=== PATIENT | female | born 1985 | race Caucasian/White ===

== ENCOUNTER → 2016-08-14 | Outpatient (CLI) | payer BC ==
--- NOTE | 2016-08-14 16:17 | REP ---
Clinical: Anatomical evaluation. Comparison: None . Findings: Examination demonstrates a single live intrauterine in breech presentation. motion is identified by technologist. Placenta is noted anteriorly and grade zero without evidence for placenta previa or abruption. Amniotic fluid volume is normal. Cervix measures 4.6 cm in length and appears closed. No evidence for nuchal cord. Gestational age by current measurements 19 weeks 5 days with DEJAN 01/03/2017. FHR equals 153 beats per minute. BPD 4.5 cm 19 weeks 5 days HC 17.0 cm 19 weeks 4 days AC 15.0 cm 20 weeks 2 days FL 3.3 cm 20 weeks 2 days HL 3.1 cm 20 weeks 1 day HC/AC ratio 1.14 Estimated weight 337 grams ( 61st percentile). Anatomical assessment demonstrates normal structures including cranium, choroid plexus, cavum, cerebellum/posterior fossa, facial features, lungs, four-chamber heart/ventricular outflow tracts, diaphragm, stomach, cord insertion/three-vessel cord, kidneys/bladder, spine, and upper extremities. Impression: Single live intrauterine in breech presentation. Limited evaluation of the lower extremities. Anatomical assessment is otherwise complete and normal. Signed by Rommel Everett MD 08/14/2016 04:08 P
== END ==
LOC: M SMT 14:45
PROVIDERS: ATTEND Advanced Practice Midwife
DX: Z36 Encounter for antenatal screening of mother (principal); Z3A.20 20 weeks gestation of pregnancy

== ENCOUNTER → 2016-09-04 | Outpatient (CLI) | payer BC ==
--- NOTE | 2016-09-04 17:23 | REP ---
Obstetric sonography: History: Supervision of followup anatomy and lower extremities. Comparison study: 08/14/2016. Findings: Scanning through the gravid uterus demonstrates a viable single intrauterine gestation in a cephalic lie. motion is observed and heart rate is recorded at 144 beats per minute. A grade zero anterior placenta is seen without evidence of previa or abruption. Amniotic fluid is subjectively normal. Closed cervical length is 4.2 cm. No extrauterine abnormality is observed. There has been appropriate interval growth. No anomaly is seen. The upper and lower extremities are seen today and felt to be unremarkable. The following additional anatomic structures are identified again and remain unremarkable: cranium, choroid plexus, cavum, cerebellum posterior fossa, lungs, four-chamber heart with left ventricular outflow tract view, diaphragm, left-sided stomach, three-vessel cord, kidneys and bladder, spine. Biometry chart: BPD 5.5 cm = 22-week 6 days Head circumference 20.4 cm = 22 weeks 4 days Abdominal circumference 18.2 cm = 23 weeks 0 days Femur length 4.1 cm = 23 weeks 3 days Humeral length 3.7 cm = 23 weeks 0 days Cerebellar diameter 2.6 cm = 23 weeks 3 days HC/AC ratio normal 1.12, cephalic index normal 0.75, estimated weight 564 grams 1 pound 3 ounces 56 percentile for 22 weeks 5 days. Impression: Viable single intrauterine gestation at 22 weeks 5 days by today's composite sonographic criteria. Expected gestational age estimate based on prior sonography is also 22 weeks 5 days. DEJAN by prior sonography 01/03/2017. lower extremities are visualized and felt to be unremarkable. anatomic survey is felt to be complete. Signed by William Tobias MD 09/05/2016 12:23 P
== END ==
LOC: M SMT 14:35
PROVIDERS: ATTEND Advanced Practice Midwife

== ENCOUNTER → 2016-09-13 | Outpatient (CLI) | payer BC ==
[2016-09-13 16:42] LABS: MEAN CORPUSCULAR HEMOGLOBIN 31.3 pg (27.0-33.0); RED CELL DISTRIBUTION WIDTH 13.4 % (11.5-14.5); WHITE BLOOD COUNT 9.8 K/mm3 (4.0-10.0)
== END ==
LOC: M SMT 10:48
PROVIDERS: ATTEND Obstetrics & Gynecology
DX: Z34.82 Encounter for supervision of other normal pregnancy, second trimester (principal)

== ENCOUNTER → 2016-09-20 | Outpatient (CLI) | payer BC | LOC: M LAB 08:12 | PROVIDERS: ATTEND Obstetrics & Gynecology | DX: Z34.82 Encounter for supervision of other normal pregnancy, second trimester (principal) ==

== ENCOUNTER → 2016-12-07 | Outpatient (REF) | payer BC ==
[~2016-12-07] MED LIST: PRENTAB9 PO
== END ==
LOC: M LAB REF 16:53
PROVIDERS: ATTEND Obstetrics & Gynecology
DX: Z34.83 Encounter for supervision of other normal pregnancy, third trimester (principal)

== ENCOUNTER 2016-12-14 17:03 | Outpatient (CLI) | payer BC ==
[~2016-12-14] VITALS: Ht 162.6 cm; Wt 78.0 kg
[2016-12-14] MEDS ORDERED: PRENTAB9 PO (17:15)
[2016-12-14 18:21] VITALS: BP 130/72
[2016-12-14 19:11] VITALS: BP 123/66
[2016-12-14 20:11] VITALS: BP 122/71
[2016-12-14 21:41] VITALS: BP 122/57
== END 2016-12-14 22:20 | disposition home or self-care (01) ==
LOC: M LDO 17:03
PROVIDERS: ATTEND Specialist
DX: O47.1 False labor at or after 37 completed weeks of gestation (principal); Z3A.37 37 weeks gestation of pregnancy; O26.853 Spotting complicating pregnancy, third trimester; Z88.8 Allergy status to other drugs, medicaments and biological substances

== ENCOUNTER 2016-12-16 11:50 | Outpatient (CLI) | payer BC ==
[~2016-12-16] VITALS: Ht 162.6 cm; Wt 76.0 kg
[2016-12-16 12:09] VITALS: BP 126/75
[2016-12-16 13:04] VITALS: BP 121/76
== END 2016-12-16 15:25 | disposition home or self-care (01) ==
LOC: M LDO 11:50
PROVIDERS: ATTEND Specialist
DX: O47.1 False labor at or after 37 completed weeks of gestation (principal); Z3A.38 38 weeks gestation of pregnancy; O26.853 Spotting complicating pregnancy, third trimester; Z88.8 Allergy status to other drugs, medicaments and biological substances

== ENCOUNTER 2016-12-20 11:17 | Inpatient (IN) | payer BC ==
[2016-12-20] VITALS (20 sets, daily range): BP systolic 110–140; BP diastolic 57–80
[~2016-12-20] VITALS: Ht 162.6 cm; Wt 75.0 kg
[2016-12-20 12:11] LABS: MEAN CORPUSCULAR HEMOGLOBIN 32.2 pg (27.0-33.0); MEAN CORPUSCULAR HGB CONC 33.7 g/dl (32.0-36.5); MEAN CORPUSCULAR VOLUME 95.5 fl (80.0-96.0); RED CELL DISTRIBUTION WIDTH 13.4 % (11.5-14.5); WHITE BLOOD COUNT 8.4 K/mm3 (4.0-10.0)
[2016-12-20] MEDS ORDERED: OXYTOCIN 30 UNITS IN 0.9% NaCl 500ML IV BAG (J2590) As Ordered ONE (12:24)
[2016-12-20] MEDS ORDERED: FENTANYL 2MCG/ML ROPIVACAINE 0.2% IN 0.9% NACL 200ML IVBAG As Ordered ONE (14:16)
--- NOTE | 2016-12-20 15:04 | HPE ---
DATE OF ADMISSION: 12/20/2016 A 31-year-old (G) 2, para (P) 1 female at 38-5/7 weeks gestation by 11-week ultrasound, estimated date of confinement (EDC) 12/29/2016, presents with regular contractions every 2-3 minutes for the last several hours. She has a small amount of vaginal bleeding and there is good movement. COURSE: The patient initiated care at 11 weeks gestation on 06/13/2016. Her blood pressure was 122/69, weighed 144 pounds. Her course was unremarkable. PAST MEDICAL HISTORY: Benign brain tumor. PAST SURGICAL HISTORY: Excision of benign brain tumor in 1992. ALLERGIES: No known drug allergies. SOCIAL HISTORY: The patient is and her is in the . She denies cigarettes, alcohol or drug use during . FAMILY HISTORY: Noncontributory. PHYSICAL EXAMINATION: Blood pressure 119/70, weight 176 pounds. She appears uncomfortable. HEAD AND NECK EXAMINATION: Normal. LUNGS: Clear. HEART: Regular rate and rhythm. ABDOMEN: Nontender, gravid. heart tones category 1. STERILE VAGINAL EXAMINATION: 3 cm, 100% effaced, -2 station, vertex, intact. EXTREMITIES: Nontender. LABORATORY DATA: Blood type is B positive, Rubella immune, RPR nonreactive, hepatitis B and C negative. HIV negative. Diabetes screen 196, normal three-hour glucose tolerance test. GBS negative on 12/07/2016. ASSESSMENT: A 31-year-old (G) 2, para (P) 1 female 38-5/7 weeks gestation by 11-week ultrasound presenting in labor. The patient is admitted on 12/20/2016.
[2016-12-20] MEDS ORDERED: diphenhydrAMINE INJ 50MG/ML VIAL (J1200) IV PRN (16:00)
[2016-12-20] MEDS ORDERED: FENTANYL/ROPIVACAINE/NACL BAG 200 ML EPIDURAL SCH (16:00)
[2016-12-20] MEDS ORDERED: EPIDURAL/PCA KEYS XX PRN (16:00)
[2016-12-20] MEDS ORDERED: ONDANSETRON 4MG/2ML VIAL (J2405) IV PRN ×2 (16:00→17:15)
[2016-12-20] MEDS ORDERED: NALOXONE INJ 0.4 MG/1 ML VIAL (J2310) IV PRN (16:00)
[2016-12-20] MEDS ORDERED: EPIDURAL COMMENT XX SCH (16:00)
[2016-12-20] MEDS ORDERED: ePHEDrine SULFATE 25 MG/5 ML(5MG/ML) SYRINGE IV PRN (16:00)
[2016-12-20] MEDS ORDERED: LACTATED RINGER'S 1000 ML IV PRN (16:00)
[2016-12-20] MEDS ORDERED: REFRIGERATOR IV KEYS XX PRN (16:00)
[2016-12-20] MEDS ORDERED: MEASLES,MUMPS,RUBELLA VACCINE INJ (MMR-II) (90707) SC SCH (17:15)
[2016-12-20] MEDS ORDERED: METHYLERGONOVINE MALEATE 0.2 MG TAB PO PRN (17:15)
[2016-12-20] MEDS ORDERED: RHOGAM 300 MCG (1500 IU) INJ (J2790) IM SCH (17:15)
[2016-12-20] MEDS ORDERED: DIBUCAINE 1% OINTMENT 30GM TOP PRN (17:15)
[2016-12-20] MEDS ORDERED: DOCUSATE SODIUM 100 MG CAP PO PRN (17:15)
[2016-12-20] MEDS ORDERED: OXYTOCIN DRIP 30 UNITS in APPROPRIATE DILUENT 1 EA IV ONE (17:15)
[2016-12-20] MEDS ORDERED: IBUPROFEN 800 MG TAB PO PRN (17:15)
[2016-12-20] MEDS ORDERED: ACETAMINOPHEN 500 MG TAB PO PRN (17:15)
[2016-12-21 05:45] VITALS: BP 135/67
--- NOTE | 2016-12-21 08:14 | DN ---
DATE OF DELIVERY: 12/20/2016 PREPROCEDURE DIAGNOSIS: 38-5/7 weeks gestation in labor. POSTPROCEDURE DIAGNOSIS: Delivered. PROCEDURE: Spontaneous vaginal delivery. SURGEON: Dr. Nehemias Landeros. QUALIFICATIONS EXAMINER: ANESTHESIA: Epidural. ESTIMATED BLOOD LOSS: 300 mL. FINDINGS: 6 pound 15 ounce female , 3140 grams, 9 and 9. DELIVERY SUMMARY: Through a short second stage, the patient was +3 station with deep variable decelerations noted. A vacuum was applied at +3 station. Delivery was accomplished in a single control traction. Loose nuchal cord times one was reduced manually. The shoulders delivered with ease. The infant cried spontaneously and was handed to the mother. The cord was doubly clamped and cut. The placenta was removed manually after being retained for greater than 15 minutes. Patient received IV Pitocin immediately after delivery of the placenta. First degree vaginal laceration was repaired with two interrupted sutures of #3-0 Chromic. Sponge and needle counts were correct.
[2016-12-21] MEDS ORDERED: PRENATAL VITAMIN TAB PO SCH (09:00)
[2016-12-21 18:00] VITALS: BP 136/62
[2016-12-21 20:38] VITALS: BP 136/62
[2016-12-22 05:31] VITALS: BP 134/61
[2016-12-22] MEDS ORDERED: PRENATAL VITAMINS CHEWABLE TABLET PO SCH (09:00)
[2016-12-22] MEDS ORDERED: TYLE500T78 PO (09:52)
[2016-12-22] MEDS ORDERED: IBUP-1114 PO (09:54)
[2016-12-22 12:00] VITALS: BP 128/63
== END 2016-12-22 12:55 | disposition home or self-care (01) | DRG 541 ==
LOC: M LDI 11:17 → M OBS 20:11
PROVIDERS: ADMIT Specialist; ATTEND Specialist
PROC: 10D07Z6 Extraction of Products of Conception, Vacuum, Via Natural or Artificial Opening (ICD-10-PCS; principal; 2016-12-20)
PROC: 10D17ZZ Extraction of Products of Conception, Retained, Via Natural or Artificial Opening (ICD-10-PCS; 2016-12-20)
PROC: 0HQ9XZZ Repair Perineum Skin, External Approach (ICD-10-PCS; 2016-12-20)
DX: O76 Abnormality in fetal heart rate and rhythm complicating labor and delivery (principal); O70.0 First degree perineal laceration during delivery; Z37.0 Single live birth; Z3A.38 38 weeks gestation of pregnancy; O73.0 Retained placenta without hemorrhage

== ENCOUNTER 2017-02-01 06:16 | Day surgery (SDC) | payer BC ==
[~2017-02-01] VITALS: Ht 162.6 cm; Wt 72.6 kg
[~2017-02-01 06:16] MED LIST changes: +IBUP-1114 PO; +TOPA100T12 PO; +TYLE500T78 PO
[2017-02-01] MEDS ORDERED: LR 1,000 ML IV SCH ×3 (06:30→09:30)
[2017-02-01 06:47] LABS: MEAN CORPUSCULAR HEMOGLOBIN 31.6 pg (27.0-33.0); MEAN CORPUSCULAR VOLUME 92.9 fl (80.0-96.0); RED CELL DISTRIBUTION WIDTH 13.2 % (11.5-14.5); WHITE BLOOD COUNT 4.7 K/mm3 (4.0-10.0)
[2017-02-01 06:59] LABS: CONTROL LINE HCG INT CTR LINE PRESENT
[2017-02-01] MEDS ORDERED: BUPIVACAINE HCL 0.25% 10 ML VIAL As Ordered ONE (07:38)
[2017-02-01] MEDS ORDERED: HYDROmorphone HCL 2 MG/ML 1ML VIAL (J1170) As Ordered ONE (08:11)
[2017-02-01] MEDS ORDERED: VECURONIUM BROMIDE 10 MG VIAL As Ordered ONE (08:11)
[2017-02-01] MEDS ORDERED: LIDOCAINE 2% INJ 100 MG/5 ML SDV (FOR ANES.) As Ordered ONE (08:11)
[2017-02-01] MEDS ORDERED: fentaNYL 250 MCG/5 ML INJECTION (J3010) As Ordered ONE (08:11)
[2017-02-01] MEDS ORDERED: MIDAZOLAM INJ 2 MG/2 ML VIAL (J2250) As Ordered ONE (08:11)
[2017-02-01] MEDS ORDERED: ONDANSETRON 4MG/2ML VIAL (J2405) As Ordered ONE ×2 (08:11→12:12)
[2017-02-01] MEDS ORDERED: PROPOFOL 200 MG/20 ML VIAL As Ordered ONE ×2 (08:11→08:43)
[2017-02-01] MEDS ORDERED: KETOROLAC 60 MG/2 ML VIAL (J1885) As Ordered ONE (08:11)
[2017-02-01] MEDS ORDERED: dexameTHASONE 4 MG/ML 1ML VIAL (J1100) As Ordered ONE (08:11)
[2017-02-01] MEDS ORDERED: NEOSTIGMINE 1MG/ML 5 ML SYRINGE (J2710) As Ordered ONE (08:19)
[2017-02-01] MEDS ORDERED: GLYCOPYRROLATE INJ 0.2 MG/ML 2 ML VIAL As Ordered ONE (08:19)
[2017-02-01] MEDS ORDERED: SILVER NITRATE APPLICATOR As Ordered ONE ×2 (08:21→08:50)
[2017-02-01] MEDS ORDERED: OXYC1TAB23 PO (09:01)
[2017-02-01] MEDS ORDERED: IBUP-1022 PO (09:03)
[2017-02-01] MEDS ORDERED: ONDANSETRON 4MG/2ML VIAL (J2405) IV PRN (09:30)
[2017-02-01] MEDS ORDERED: fentaNYL 100 MCG/2 ML INJECTION (J3010) IV PRN (09:30)
[2017-02-01] MEDS ORDERED: PERCOCET 5MG/325MG TAB PO PRN (09:30)
[2017-02-01] MEDS ORDERED: METOCLOPRAMIDE INJ 10MG/2ML VIAL (J2765) As Ordered ONE (09:50)
[2017-02-01] MEDS ORDERED: METOCLOPRAMIDE INJ 10MG/2ML VIAL (J2765) IV PRN (10:00)
[2017-02-01] MEDS ORDERED: TOPIRAMATE (TopAMAX) 100 MG TAB PO ONE (13:00)
[2017-02-01 15:25] VITALS: BP 120/74
--- NOTE | 2017-02-03 07:27 | RO ---
DATE OF PROCEDURE: 02/01/2017 PREOPERATIVE DIAGNOSIS: Satisfied parity. POSTOPERATIVE DIAGNOSIS: Satisfied parity. PROCEDURE PERFORMED: Laparoscopic bilateral salpingectomy. SURGEON: Dr. Ariel Westfall TRIP MOTOR OPERATOR: None. ANESTHESIA: General endotracheal. SPECIMENS TO PATHOLOGY: Bilateral fallopian tubes. ESTIMATED BLOOD LOSS: 10 mL. FLUIDS REPLACED: 1300 mL lactated Ringer's. DRAINS: Stein catheter with urine output of 400 mL. COMPLICATIONS: None. PREOPERATIVE ANTIBIOTICS: None indicated. INTRAOPERATIVE FINDINGS: Normal uterus and bilateral adnexa. No intraperitoneal adhesive disease. No intra-abdominal masses. INDICATIONS: The patient is a 31-year-old with 100% satisfied parity requesting permanent tubal sterilization. After reviewing all options of control to include long-acting reversible contraception, she has elected to proceed with a laparoscopic bilateral salpingectomy. PROCEDURE: The patient was counseled and consented on risks, benefits, indications and alternatives to the procedure. Informed consent was obtained. She was taken to the operating room with an IV running and placed on the operating table in dorsal supine position. General anesthesia was administered and the airway secured without any difficulty. The patient was placed in low lithotomy position. She was prepared and draped in the normal sterile fashion. A time- out was performed per protocol. A Stein catheter was placed under sterile conditions. A sterile speculum was placed into the vagina with good visualization of the cervix. A single-tooth tenaculum was used to grasp the anterior lip of the cervix and downward traction was applied. The cervix then sequentially dilated with Gordon dilators up to #16. The [place] uterine manipulator was then placed in typical fashion. The single-tooth tenaculum was removed. The sterile speculum was removed. A glove switch was performed. Attention was turned to the abdomen. Five mL of 0.25% Marcaine were injected into the umbilicus. An 8 mm umbilical incision was made with the 11 blade and through this umbilical incision a Veress needle was placed into the intraperitoneal cavity. The intraperitoneal placement was confirmed with ease of flow of normal saline, negative return on aspiration and a positive drop test. The opening pressure was 4 mmHg. The abdomen was insufflated with 2 liters of gas. The Veress needle was removed. The size 5 mm [place] laparoscopic trocar was placed through this incision into the intraperitoneal cavity without any difficulty. No incidental bleeding or injury was noted. The patient was placed in steep Trendelenburg. Two additional laparoscopic port sites were placed on the left lower abdomen, each through 5 mm skin incisions and 5 mm [place] laparoscopic trocars were placed under direct laparoscopic visualization. The umbilical cannula was replaced with an 8 mm [place] cannula without any difficulty. The anatomy was identified and the right fallopian tube was grasped at the fimbriated end and elevated using the LigaSure device. The underlying broad ligament mesosalpinx was sequentially clamped, coagulated and transected until the level of the uterus was reached. At the level of the uterus, the right fallopian tube was clamped, coagulated and transected, thus amputating the right fallopian tube. The right fallopian tube was brought through the 5 mm cannula. Attention was then turned to the left fallopian tube. The left fallopian tube was grasped at the fimbriated end and elevated. The underlying mesosalpinx/broad ligament was sequentially clamped, coagulated and transected with the LigaSure device until the level of the uterus was reached. Then the left fallopian tube was clamped, coagulated and transected with the LigaSure device. The left fallopian tube was amputated and removed through the 8 mm port site. The surgical sites were completely hemostatic. Excellent hemostasis was noted throughout the entire abdomen and pelvis. The gas was released from the abdomen. The cannulas were removed. The skin incisions were closed with #4-0 Monocryl in subcuticular fashion and reinforced with Dermabond. Sponge, lap, needle and instrument counts were correct. Attention was turned back to the vagina. The Stein catheter was removed. The sterile speculum was placed with good visualization of the cervix. The Hul[place] uterine manipulator was removed. The [place] site had a small incidental bleeding laceration on the cervix and this was sutured with a single interrupted stitch using #3-0 Vicryl. Excellent hemostasis was noted. All the instruments were then removed from the vagina. Sponge, lap, needle and instrument counts were again correct. The patient tolerated the entire procedure very well. She was transferred to the postanesthesia care unit (PACU) in good and stable condition. VICKIE
== END 2017-02-01 15:26 | disposition home or self-care (01) ==
LOC: M SDC 06:16
PROVIDERS: ATTEND Obstetrics & Gynecology
DX: Z30.2 Encounter for sterilization (principal); M54.2 Cervicalgia; F41.9 Anxiety disorder, unspecified; F32.9 Major depressive disorder, single episode, unspecified; G43.909 Migraine, unspecified, not intractable, without status migrainosus; Z86.011 Personal history of benign neoplasm of the brain; Z79.899 Other long term (current) drug therapy; Z88.8 Allergy status to other drugs, medicaments and biological substances
CPT/HCPCS: 36415; 58661; 84703; 85027; 86850; 86900; 86901; 88302; J1100; J1170; J1885; J2250; J2405; J2710; J2765; J3010

== ENCOUNTER → 2017-06-19 | Outpatient (CLI) | payer BC ==
[~2017-06-19] MED LIST changes: +IBUP-1022 PO; +OXYC1TAB23 PO
[2017-06-19 18:12] LABS: FREE T4 1.04 NG/DL (0.76-1.46)
== END ==
LOC: M SMT 14:39
PROVIDERS: ATTEND Family Medicine
DX: F33.0 Major depressive disorder, recurrent, mild (principal)

== ENCOUNTER → 2017-10-16 | Outpatient (CLI) | payer BC ==
[2017-10-18 10:04] LABS: TOTAL 25(OH) VITAMIN D 58.7 NG/ML (30.0-100.0)
== END ==
LOC: M WUC 16:09
DX: E55.9 Vitamin D deficiency, unspecified (principal)